=== PATIENT | female | born 1970 | race Caucasian/White ===

== ENCOUNTER 2023-06-18 19:52 | Emergency (ER) | payer OTHER, SELFPAY ==
--- NOTE | ~2023-06-18 | XR_ITS ---
EXAMINATION: XR shoulder LT min 2V DATE: 06/18/2023 20:56 INDICATION: Left shoulder injury. TECHNIQUE: 2 views of left shoulder were obtained. COMPARISON: None. FINDINGS: There is a comminuted fracture of proximal left humerus. At the surgical neck, the main dis neal fracture fragment demonstrates 17 mm anterior displacement and 6 mm medial displacement. The javier ohumeral joint is not well profiled. 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 IMPRESSION: 1. Comminuted two-part fracture of proximal left humerus. 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
--- NOTE | ~2023-06-18 | XR_ITS ---
EXAMINATION: XR humerus LT DATE: 06/18/2023 20:56 INDICATION: Left humerus injury. TECHNIQUE: 2 views of left humerus were obtained. COMPARISON: None. FINDINGS: There is a comminuted fracture of proximal left humerus. At the surgical neck, the main dis neal fracture fragment demonstrates one half shaft width anterior displacement and 19 degrees posterio r angulation. There is moderate osteoarthritis of acromioclavicular joint. IMPRESSION: 1. Comminuted two-part fracture of proximal left humerus. Reviewed, dictated and finalized at location E. 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
[2023-06-18 20:11] VITALS: PULSE 94; RESP 16; TEMP 36.2; O2SAT 100
[2023-06-18] MEDS: ONDANSETRON INJ 4 MG/2 ML VIAL IV PUSH (23:42)
[2023-06-18] MEDS: MORPHINE SULFATE (*CRX) 4 MG/ML INJ IV PUSH (23:43)
--- NOTE | 2023-06-18 23:56 | ED.GENADULT ---
HPI - General Adult General Chief complaint: Extremity Injury, Upper Stated complaint: left shoulder dislocation Time Seen by Provider: 06/18/23 23:31 History of Present Illness HPI narrative: Patient is a 52-year-old female who presents emergency department this evening after a fall while roller-skating. Patient states that she landed on her left shoulder and felt immediate pain. Patient denies hitting her head and denies any loss of consciousness. Patient states that she was able to get up and walk without any difficulty. She is currently denying any additional injury and only complaining of left shoulder pain. There are no other modifying, alleviating, or precipitating factors at this time. Related Data Allergies Allergy/AdvReac Type Severity Reaction Status Date / Time NKDA Allergy Mild Other Uncoded 06/18/23 20:25 Review of Systems Review of Systems: All systems are reviewed and are negative unless stated otherwise in the HPI. PMFSH Comments Denies any significant past medical, surgical or family history, denies any tobacco use, alcohol abuse or illicit drug use. Exam Narrative: General: Alert, awake, afebrile, in no acute distress. HEENT: PERRL, no rhinorrhea, no post nasal drip, oropharynx clear. Neck: Trachea midline, no JVD, no lymphadenopathy. Cardiovascular: Regular rate and rhythm, no murmurs, rubs or gallops, no peripheral edema. Respiratory: Clear to auscultation bilaterally, no tachypnea, no wheezing, no rhonchi, no rubs, no respiratory distress. Abdomen: Soft, nontender, nondistended, no rebound, no guarding, no peritoneal signs. Musculoskeletal: Left upper extremity held in abduction and flexion at the shoulder joint, intact radial and ulnar pulses of the left upper extremity, decreased range of motion at the left shoulder joint and at the elbow and wrist joints due to pain, to pain intact sensation over the deltoid region and along medial, radial and ulnar nerve distribution. Skin: No rashes or petechia, no signs of infection. Psychiatric: Alert and oriented, normal behavior and judgment for situation. Neurological: Alert and oriented to person, place, and time. Follows all commands. No focal deficits, speech is clear and fluent. Course Vital Signs Vital signs: Vital Signs Temperature 97.1 F L 06/18/23 20:11 Pulse Rate 94 06/18/23 20:11 Respiratory Rate 16 06/18/23 20:11 Pulse Oximetry 100 06/18/23 20:11 Oxygen Delivery Room Air 06/18/23 20:11 Temperature 97.1 F L 06/18/23 20:11 Pulse Rate 92 06/19/23 00:42 Respiratory Rate 15 06/19/23 00:42 Blood Pressure 128/72 06/19/23 00:42 Pulse Oximetry 100 06/19/23 00:42 Oxygen Delivery Room Air 06/18/23 20:11 Medical Decision Making MDM Narrative Medical decision making narrative: The patient was evaluated by myself in the emergency department. History is obtained from patient who is an independent historian and physical exam was performed. External medical records were reviewed at this time. Patient was administered 4 mg of IV morphine for pain and 4 mg IV Zofran for nausea. Morphine did not alleviated the patient's symptoms at this time she was administered 1 mg of IV Dilaudid. Patient was placed in a sling. Imaging studies obtained included a left shoulder and left humerus x-ray which was independently interpreted by me revealing a comminuted 2 part fracture of the proximal left humerus along the surgical neck, which is pending final radiology interpretation. Case was discussed with the on-call orthopedic surgeon Dr. Moctezuma at 0114 and he agreed to evaluate the patient. Differential diagnosis considerations include left shoulder fracture versus dislocation. Comorbidities impacting this visit include none. I have evaluated and discussed social determinants of health with the patient that could potentially impact subsequent diagnosis and treatment plans. On repeat assessment of the patient, reevalu
[2023-06-19] MEDS: HYDROmorphone HCL INJ (*CRX) 1 MG/ML SYR IV PUSH ×2 (00:36→01:22)
[2023-06-19 00:42] VITALS: BP 128/72; PULSE 92; RESP 15; O2SAT 100
== END 2023-06-19 01:52 | disposition home or self-care (01) ==
PROVIDERS: Emergency Provider Emergency Medicine; PCP Nurse Practitioner Family
DX: S42.202A Unspecified fracture of upper end of left humerus, initial encounter for closed fracture (principal); V00.121A Fall from non-in-line roller-skates, initial encounter
CPT/HCPCS: 73030; 73060; 96374; 96375; 96376; 99284; A4565; J1170; J2270; J2405